=== PATIENT | female | born 1955 | race African-American/Black ===

== ENCOUNTER 2020-04-09 07:16 | Emergency (ER) | payer OTHER ==
[2020-04-09 07:47] VITALS: BP 153/74; PULSE 85; TEMP 98.1; BMI 35.4
[2020-04-09 08:30] LABS: BASO % 0.9 % (0-2.0); EOS % 1.5 % (0-4.5); HEMATOCRIT 37.3 % (32.4-45.2); HEMOGLOBIN 12.3 GM/dL (10.7-15.3); LYMPH % 26.9 % (8-40); MCH 29.7 pg (25.7-33.7); MCHC 33.1 g/dl (32.0-36.0); MEAN CELL VOLUME 89.7 fl (80-96); MEAN PLT VOLUME 10.4 fl (7.5-11.1); MONO % 6.2 % (3.8-10.2); NEUT % 64.5 % (42.8-82.8); PLATELET COUNT 163 K/MM3 (134-434); RBC 4.15 M/mm3 (3.60-5.2); WHITE BLOOD COUNT 7.3 K/mm3 (4.0-10.0)
[2020-04-09 08:54] LABS: ALBUMIN 3.4 g/dl (3.4-5.0); BLOOD UREA NITROGEN 15.2 mg/dL (7-18); CALCIUM 9.3 mg/dL (8.5-10.1)
[2020-04-09 08:58] LABS: BILIRUBIN,TOTAL 0.4 mg/dL (0.2-1); CREATININE 0.7 mg/dL (0.55-1.3); TOT PROT 7.8 g/dl (6.4-8.2)
[2020-04-09 09:06] LABS: POTASSIUM 6.2 mmol/L (3.5-5.1)
[2020-04-09 09:34] LABS: INR 1.02 (0.83-1.09); PROTHROMBIN TIME (PATIENT) 12.5 SEC (9.7-13.0)
== END 2020-04-09 11:42 | disposition home or self-care (01) ==
LOC: JER 07:16
DX: S00.83XA Contusion of other part of head, initial encounter (principal)
CPT/HCPCS: 36415; 70450-TC; 72125-TC; 80053; 84132; 85025; 85610; 99285-25

== ENCOUNTER 2023-12-17 09:24 | Inpatient (IN) | payer OTHER ==
[2023-12-17 09:38] VITALS: BMI 28.3
[2023-12-17] MEDS ORDERED: LISINOPRIL 20 MG TABLET ONE (10:23)
[2023-12-17] MEDS: LISINOPRIL 20 MG TABLET PO ONE (10:24)
[2023-12-17] MEDS ORDERED: DEXTROSE 50%-WATER 25 GM/50 ML DISP.SYRIN ONE (10:32)
[2023-12-17 10:36] LABS: BASO % 0.2 % (0-2.0); EOS % 0.3 % (0-4.5); HEMATOCRIT 37.2 % (32.4-45.2); HEMOGLOBIN 12.1 GM/dL (10.7-15.3); LYMPH % 14.9 % (8-40); MCH 28.6 pg (25.7-33.7); MCHC 32.7 g/dl (32.0-36.0); MEAN CELL VOLUME 87.6 fl (80-96); MEAN PLT VOLUME 9.4 fl (7.5-11.1); MONO % 9.6 % (3.8-10.2); PLATELET COUNT 202 10^3/uL (134-434); RBC 4.24 M/mm3 (3.60-5.2); RDW 16.1 % (11.6-15.6); WHITE BLOOD COUNT 5.7 K/mm3 (4.0-10.0)
[2023-12-17 10:40] LABS: EPI CELLS 4 /uL (0-25.1); HYALINE CASTS 0 /uL (0-3.1); PH,URINE 6.5 (5.0-8.0); URINE APPEARANCE CLEAR; URINE BACTERIA >9,000 /uL (0-1359); URINE BILIRUBIN NEGATIVE (NEGATIVE); URINE COLOR YELLOW; URINE GLUCOSE (UA) NEGATIVE (NEGATIVE); URINE KETONE NEGATIVE (NEGATIVE); URINE LEUK ESTERASE 1+ (NEGATIVE); URINE NITRITE POSITIVE (NEGATIVE); URINE PROTEIN NEGATIVE (NEGATIVE); URINE RBC 7 /uL (0-23.9); URINE UROBILINOGEN 0.2 mg/dL (0.2-1.0); URINE WBC 79 /uL (0-25.8)
[2023-12-17 11:02] LABS: CALCIUM 9.2 mg/dL (8.5-10.1); CHLORIDE 101 mmol/L (98-107); SODIUM 131 mmol/L (136-145)
[2023-12-17] MEDS: DEXTROSE 50%-WATER - 25 GM/50 ML VIAL IVPUSH ONE (11:02)
[2023-12-17] MEDS: HYDROCHLOROTHIAZIDE 25 MG TABLET (FP) PO ONE (11:02)
[2023-12-17 11:03] LABS: ALBUMIN 3.4 g/dl (3.4-5.0); BLOOD UREA NITROGEN 20.7 mg/dL (7-18); CO2 28 mmol/L (21-32); GLUCOSE,RANDOM 94 mg/dL (74-106); MAGNESIUM 2.2 mg/dL (1.8-2.4)
[2023-12-17] MEDS: HYDROmorphone HCl 2 MG/ML VIAL IVPUSH ONE (11:03)
[2023-12-17 11:06] LABS: ANION GAP 1 mmol/L (4-13); CREATININE 0.8 mg/dL (0.55-1.3); POTASSIUM 9.1 mmol/L (3.5-5.1)
[2023-12-17 11:07] LABS: SGOT/AST 164 U/L (15-37)
[2023-12-17 11:09] LABS: ALK PHOS 78 U/L (45-117)
[2023-12-17 11:11] LABS: N-TERMINAL BNP 724.1 pg/ml (5-125)
[2023-12-17 11:40] LABS: SGPT/ALT 39 U/L (13-61)
[2023-12-17] MEDS ORDERED: CEFTRIAXONE 1 GM/50 ML BAG ONE (11:42)
[2023-12-17] MEDS: CEFTRIAXONE 1 MG in DEXTROSE 5%-WATER - 50 ML IVPB ONE (11:59)
[2023-12-17 12:13] LABS: BILIRUBIN,TOTAL < 0.5 mg/dL (0.2-1)
[2023-12-17 12:24] LABS: CALCIUM 9.4 mg/dL (8.5-10.1)
[2023-12-17 12:26] LABS: BLOOD UREA NITROGEN 19.8 mg/dL (7-18)
[2023-12-17 12:28] LABS: CREATININE 0.8 mg/dL (0.55-1.3)
[2023-12-17 12:30] LABS: BILIRUBIN,TOTAL 0.4 mg/dL (0.2-1)
[2023-12-17 12:32] LABS: TOT PROT 6.8 g/dl (6.4-8.2)
[2023-12-17 13:12] LABS: POTASSIUM 4.2 mmol/L (3.5-5.1)
[2023-12-17 13:15] LABS: BLOOD UREA NITROGEN 19.7 mg/dL (7-18); CALCIUM 9.5 mg/dL (8.5-10.1)
[2023-12-17 13:18] LABS: CREATININE 0.8 mg/dL (0.55-1.3)
[2023-12-17] MEDS: INSULIN ASPART SLIDING SCALE (NOVOLOG) 1 VIAL SQ SCH ×2 (17:54→22:14)
[2023-12-17] MEDS: FUROSEMIDE 40 MG/4 ML INJECTABLE VIAL IVPUSH SCH (19:54)
[2023-12-17] MEDS: LABETALOL HCL 100 MG TABLET (FP) PO SCH (21:27)
[2023-12-18 08:19] LABS: BASO % 0.3 % (0-2.0); EOS % 1.5 % (0-4.5); HEMOGLOBIN 10.2 GM/dL (10.7-15.3); LYMPH % 30.5 % (8-40); MCH 29.1 pg (25.7-33.7); MCHC 33.1 g/dl (32.0-36.0); MONO % 18.4 % (3.8-10.2); NEUT % 49.3 % (42.8-82.8); PLATELET COUNT 150 10^3/uL (134-434); RBC 3.52 M/mm3 (3.60-5.2); RDW 15.4 % (11.6-15.6); WHITE BLOOD COUNT 4.8 K/mm3 (4.0-10.0)
[2023-12-18 08:20] LABS: POTASSIUM 3.9 mmol/L (3.5-5.1)
[2023-12-18 08:24] LABS: BLOOD UREA NITROGEN 23.1 mg/dL (7-18); CALCIUM 9.1 mg/dL (8.5-10.1)
[2023-12-18 08:28] LABS: CREATININE 0.6 mg/dL (0.55-1.3)
[2023-12-18] MEDS: FUROSEMIDE 40 MG/4 ML INJECTABLE VIAL IVPUSH SCH (10:13)
[2023-12-18] MEDS: CEFTRIAXONE 1 GM in DEXTROSE 5%-WATER - 50 ML IVPB SCH (10:14)
[2023-12-18] MEDS: ASPIRIN 81 MG CHEWABLE TABLETS PO SCH (10:14)
[2023-12-18] MEDS: LISINOPRIL 20 MG TABLET PO SCH (10:14)
[2023-12-18 15:01] VITALS: RESP 18
[2023-12-18] MEDS: LABETALOL HCL 200 MG TABLET (FP) PO SCH (21:06)
[2023-12-19 07:42] VITALS: PULSE 70
[2023-12-19 07:56] LABS: POTASSIUM 3.9 mmol/L (3.5-5.1)
[2023-12-19 08:03] LABS: CALCIUM 8.6 mg/dL (8.5-10.1)
[2023-12-19 08:04] LABS: ALBUMIN 2.8 g/dl (3.4-5.0); BASO % 0.6 % (0-2.0); BLOOD UREA NITROGEN 21.2 mg/dL (7-18); EOS % 3.7 % (0-4.5); HEMATOCRIT 32.6 % (32.4-45.2); HEMOGLOBIN 10.6 GM/dL (10.7-15.3); LYMPH % 30.1 % (8-40); MAGNESIUM 1.7 mg/dL (1.8-2.4); MCH 28.7 pg (25.7-33.7); MCHC 32.6 g/dl (32.0-36.0); MEAN CELL VOLUME 88.1 fl (80-96); MEAN PLT VOLUME 9.2 fl (7.5-11.1); MONO % 18.6 % (3.8-10.2); PLATELET COUNT 144 10^3/uL (134-434); RDW 15.6 % (11.6-15.6); WHITE BLOOD COUNT 4.1 K/mm3 (4.0-10.0)
[2023-12-19 08:07] LABS: BILIRUBIN,TOTAL 0.4 mg/dL (0.2-1); CREATININE 0.6 mg/dL (0.55-1.3); PHOSPHOROUS 3.4 mg/dL (2.5-4.9); TOT PROT 6.1 g/dl (6.4-8.2)
[2023-12-19] MEDS: ASPIRIN COATED 81 MG TABLET.EC PO SCH (10:36)
[2023-12-19] MEDS: VALSARTAN 160 MG TABLET PO SCH (10:37)
[2023-12-19] MEDS: FUROSEMIDE 40 MG TABLET (FP) PO SCH (11:03)
[2023-12-19] MEDS: CEFUROXIME AXETIL 250 MG TABLET PO SCH (11:03)
[2023-12-19 11:12] VITALS: BP 162/55; TEMP 98.2
== END 2023-12-19 15:02 | disposition home or self-care (01) | DRG 638 ==
LOC: JER 09:24 → JERBED 13:49 → J4W 16:41
PROVIDERS: ADMIT Internal Medicine; ATTEND Internal Medicine
DX: E11.649 Type 2 diabetes mellitus with hypoglycemia without coma (principal); I16.1 Hypertensive emergency; N39.0 Urinary tract infection, site not specified; I25.10 Atherosclerotic heart disease of native coronary artery without angina pectoris; B96.1 Klebsiella pneumoniae [K. pneumoniae] as the cause of diseases classified elsewhere; E11.9 Type 2 diabetes mellitus without complications; Z95.5 Presence of coronary angioplasty implant and graft
CPT/HCPCS: 36415; 71045-TC-FY; 80048; 80053; 81003; 82962; 83036; 83605; 83735; 83880; 84100; 84443; 84484; 85025; 86140; 87086; 87186; 93005; 93010; 93306-TC; 93970-TC; 97116-GP; 97162-GP; 99285-25